=== PATIENT | male | born 1965 | race Caucasian/White ===

== ENCOUNTER → 2016-10-04 | Outpatient (CLI) | payer MEDICARE, OTHER ==
--- NOTE | 2016-10-04 12:46 | EKG REPORT ---
SEVERITY:- NORMAL ECG - SINUS RHYTHM : Confirmed by: Elza Acosta MD 04-Oct-2016 12:44:52
--- NOTE | 2016-10-04 15:06 | RADIOLOGY REPORT (SQ) ---
EXAM DESCRIPTION: CHEST PA/LATERAL COMPLETED DATE/TIME: 10/04/2016 1:14 pm REASON FOR STUDY: End stage renal disease COMPARISON: None. EXAM PARAMETERS: NUMBER OF VIEWS: two views TECHNIQUE: Digital Frontal and Lateral radiographic views of the chest acquired. RADIATION DOSE: NA LIMITATIONS: none FINDINGS: LUNGS AND PLEURA: Bandlike atelectasis or scarring at the left lung base. Calcified granu red in the lingular apex. No fluffy alveolar infiltrates worrisome for edema or pneumonia. No pleu ral effusions. No pneumothorax. MEDIASTINUM AND HILAR STRUCTURES: No masses or contour abnormalities. HEART AND VASCULAR STRUCTURES: Heart normal size. No evidence for failure. BONES: No acute findings. HARDWARE: None in the chest. OTHER: No other significant finding. IMPRESSION: No acute infiltrates. TECHNICAL DOCUMENTATION: JOB ID: [id number] [email or web address]- All Rights Reserved
== END ==
LOC: OD 11:16
PROVIDERS: ATTEND Internal Medicine Nephrology
DX: N18.6 End stage renal disease (principal)
CPT/HCPCS: 71020; 93005; 93010

== ENCOUNTER → 2016-10-04 | Outpatient (CLI) | payer MEDICARE, OTHER ==
[2016-10-04 12:17] LABS: ABSOLUTE BASOPHILS # (AUTO) 0.1 10^3/uL (0.0-0.2); ABSOLUTE EOSINOPHILS # (AUTO) 0.4 10^3/uL (0.0-0.6); ABSOLUTE MONOCYTES (AUTO) 0.6 10^3/uL (0.1-1.4); ABSOLUTE NEUT (AUTO) 4.6 10^3/uL (1.7-8.2); BASOPHILS % (AUTO) 1.5 % (0-2); EOSINOPHILS % (AUTO) 6.2 % (0-6); HEMATOCRIT 51.8 % (37.9-51.0); HEMOGLOBIN 16.2 g/dL (13.5-17.0); HGB HCT DIFFERENCE -3.2; LYMPHOCYTES % (AUTO) 15.1 % (13-45); MEAN CORPUSCULAR HEMOGLOBIN 28.5 pg (27.0-33.4); MEAN CORPUSCULAR HGB CONC 31.2 g/dL (32.0-36.0); MEAN CORPUSCULAR VOLUME 91 fl (80-97); MONOCYTES % (AUTO) 9.3 % (3-13); RED BLOOD COUNT 5.68 10^6/uL (4.35-5.55); RED CELL DISTRIBUTION WIDTH 15.5 % (11.5-14.0); SEGMENTED NEUTROPHILS % (AUTO) 67.9 % (42-78); WHITE BLOOD COUNT 6.8 10^3/uL (4.0-10.5)
[2016-10-04 12:47] LABS: ALANINE AMINOTRANSFERASE 29 U/L (21-72); ALBUMIN 3.5 g/dL (3.5-5.0); ALKALINE PHOSPHATASE 128 U/L (38-126); ANION GAP 15 (5-19); ASPARTATE AMINO TRANSFERASE 23 U/L (17-59); BILIRUBIN,DIRECT 0.5 mg/dL (0.0-0.4); BILIRUBIN,TOTAL 0.5 mg/dL (0.2-1.3); BLOOD UREA NITROGEN 59 mg/dL (7-20); C-REACTIVE PROTEIN 21.9 mg/L (<10.0); CALCIUM 9.4 mg/dL (8.4-10.2); CARBON DIOXIDE 31 mmol/L (22-30); CHLORIDE 93 mmol/L (98-107); CREATININE RESULT 11.49 mg/dL (0.52-1.25); GLUCOSE 121 mg/dL (75-110); POTASSIUM 5.5 mmol/L (3.6-5.0); SODIUM 138.7 mmol/L (137-145); TOTAL PROTEIN 6.3 g/dL (6.3-8.2)
[2016-10-04 12:53] LABS: ERYTHROCYTE SEDIMENTATION RATE 26 mm/hr (0-20)
--- NOTE | 2016-10-04 14:05 | RADIOLOGY REPORT (SQ) ---
EXAM DESCRIPTION: FOOT LEFT COMPLETE COMPLETED DATE/TIME: 10/04/2016 1:14 pm REASON FOR STUDY: NON-PRS CHR ULCER OF LEFT HEEL AND MIDFOOT W FAT LAYER EXPOS L97.422 NON-PRS CHR ULCER OF LEFT HEEL AND MIDFOOT W FAT LAY E11.621 TYPE 2 DIABETES MELLITUS WITH FOOT ULCER COMPARISON: None. NUMBER OF VIEWS: Three views. TECHNIQUE: AP, lateral and oblique radiographic images acquired of the left foot. LIMITATIONS: None. FINDINGS: MINERALIZATION: Overall normal bone mineralization. No bony resorption or periosteal new bone along the calcaneus worrisome for osteomyelitis. BONES: Incidental finding of a transverse subacute fracture, proximal metaphysis pinky toe proximal p halanx. This may be acute or subacute. JOINTS: Unremarkable SOFT TISSUES: 2.5 cm heel soft tissue ulcer best shown on lateral view No soft tissue swelling. No foreign body. OTHER: Atherosclerotic arterial vascular calcifications IMPRESSION: 2.5 cm heel soft tissue ulcer No underlying calcaneal demineralization or periosteal new bone worrisome for osteomyelitis Incidental finding of an acute or subacute fracture of the base left pinky toe proximal phalanx TECHNICAL DOCUMENTATION: JOB ID: [id number] [employer]- All Rights Reserved
== END ==
LOC: WC 10:59
PROVIDERS: ATTEND Nurse Practitioner Family
DX: E11.621 Type 2 diabetes mellitus with foot ulcer (principal); L97.422 Non-pressure chronic ulcer of left heel and midfoot with fat layer exposed
CPT/HCPCS: 36415; 80053; 83036; 85025; 85652; 86140

== ENCOUNTER → 2016-11-01 | Outpatient (CLI) | payer MEDICARE ==
[2016-11-01 12:08] LABS: ABSOLUTE BASOPHILS # (AUTO) 0.1 10^3/uL (0.0-0.2); ABSOLUTE EOSINOPHILS # (AUTO) 0.3 10^3/uL (0.0-0.6); ABSOLUTE LYMPHOCYTES (AUTO) 0.8 10^3/uL (0.5-4.7); ABSOLUTE MONOCYTES (AUTO) 0.4 10^3/uL (0.1-1.4); BASOPHILS % (AUTO) 0.9 % (0-2); EOSINOPHILS % (AUTO) 4.8 % (0-6); HEMATOCRIT 47.8 % (37.9-51.0); HEMOGLOBIN 15.5 g/dL (13.5-17.0); HGB HCT DIFFERENCE -1.3; LYMPHOCYTES % (AUTO) 11.7 % (13-45); MEAN CORPUSCULAR HEMOGLOBIN 29.2 pg (27.0-33.4); MEAN CORPUSCULAR HGB CONC 32.5 g/dL (32.0-36.0); MEAN CORPUSCULAR VOLUME 90 fl (80-97); MONOCYTES % (AUTO) 6.1 % (3-13); RED BLOOD COUNT 5.32 10^6/uL (4.35-5.55); RED CELL DISTRIBUTION WIDTH 15.6 % (11.5-14.0); SEGMENTED NEUTROPHILS % (AUTO) 76.5 % (42-78); WHITE BLOOD COUNT 6.5 10^3/uL (4.0-10.5)
--- NOTE | 2016-11-01 12:23 | RADIOLOGY REPORT (SQ) ---
EXAM DESCRIPTION: FOOT LEFT COMPLETE COMPLETED DATE/TIME: 11/01/2016 11:28 am REASON FOR STUDY: NON-PRS CHRONIC ULCER OTH PRT LEFT FOOT W FAT LAYER EXPOSED E11.621 TYPE 2 DIABET ES MELLITUS WITH FOOT ULCER L97.522 NON-PRS CHRONIC ULCER OTH PRT LEFT FOOT W FAT LAYER COMPARISON: 10/04/2016 NUMBER OF VIEWS: Three views. TECHNIQUE: AP, lateral and oblique radiographic images acquired of the left foot. LIMITATIONS: None. FINDINGS: MINERALIZATION: Normal. BONES: Healing fracture of the proximal phalanx of the 5th digit. No evidence for osteomyelitis. JOINTS: No effusions. SOFT TISSUES: Soft tissue defect distal seconds toe. Radiodensity, question gauze. Soft tissue defect plantar surface along the calcaneus. Adjacent radiodensity question treatment gau zel. OTHER: No other significant finding. IMPRESSION: No evidence for osteomyelitis. 2 soft tissue defects as described. Healing fracture proximal phalanx 5th digit. TECHNICAL DOCUMENTATION: JOB ID: [id number] [employer]- All Rights Reserved
[2016-11-01 12:52] LABS: ERYTHROCYTE SEDIMENTATION RATE 22 mm/hr (0-20)
== END ==
LOC: WC 10:59
PROVIDERS: ATTEND Nurse Practitioner Family
DX: E11.621 Type 2 diabetes mellitus with foot ulcer (principal); L97.522 Non-pressure chronic ulcer of other part of left foot with fat layer exposed
CPT/HCPCS: 36415; 85025; 85652; 86140

== ENCOUNTER → 2016-11-14 | Outpatient (CLI) | payer MEDICARE, OTHER ==
[2016-11-14 13:58] LABS: ANION GAP 18 (5-19); BLOOD UREA NITROGEN 54 mg/dL (7-20); CALCIUM 9.5 mg/dL (8.4-10.2); CARBON DIOXIDE 28 mmol/L (22-30); CHLORIDE 92 mmol/L (98-107); CREATININE RESULT 12.43 mg/dL (0.52-1.25); GLUCOSE 207 mg/dL (75-110); POTASSIUM 4.3 mmol/L (3.6-5.0); SODIUM 137.5 mmol/L (137-145)
== END ==
LOC: OD 13:12
PROVIDERS: ATTEND Physician Assistant Surgical
DX: Z01.810 Encounter for preprocedural cardiovascular examination (principal); I70.90 Unspecified atherosclerosis; I10 Essential (primary) hypertension
CPT/HCPCS: 36415; 80048

== ENCOUNTER → 2016-12-15 | Outpatient (CLI) | payer MEDICARE, OTHER ==
--- NOTE | 2016-12-15 15:04 | RADIOLOGY REPORT (SQ) ---
EXAM DESCRIPTION: FOOT LEFT COMPLETE COMPLETED DATE/TIME: 12/15/2016 2:30 pm REASON FOR STUDY: NON-PRESSURE ULCER LEFT HEEL E11.621 TYPE 2 DIABETES MELLITUS WITH FOOT ULCER L97 .422 NON-PRS CHR ULCER OF LEFT HEEL AND MIDFOOT W FAT LAY COMPARISON: 11/01/2016 NUMBER OF VIEWS: Three views. TECHNIQUE: AP, lateral and oblique radiographic images acquired of the left foot. LIMITATIONS: None. FINDINGS: MINERALIZATION: Normal. BONES: No evidence of osteomyelitis. There is a healing fracture of 5th proximal phalanx. On the la teral view there appears to be a defect in the neck of 1 of the distal phalanges, possibly the 2nd. JOINTS: No effusions. SOFT TISSUES: Soft tissue defect seen on the inferior dorsal aspect of the left heel OTHER: No other significant finding. IMPRESSION: 1. Fracture of the 5th proximal phalanx. 2. Possible fracture of the neck of the 2nd distal phalanx. 3. Soft tissue defect in the heel with no evidence of osteomyelitis. TECHNICAL DOCUMENTATION: JOB ID: [id number] [employer]- All Rights Reserved
[2016-12-15 15:28] LABS: ABSOLUTE BASOPHILS # (AUTO) 0.1 10^3/uL (0.0-0.2); ABSOLUTE EOSINOPHILS # (AUTO) 0.4 10^3/uL (0.0-0.6); ABSOLUTE LYMPHOCYTES (AUTO) 1.3 10^3/uL (0.5-4.7); ABSOLUTE MONOCYTES (AUTO) 0.7 10^3/uL (0.1-1.4); ABSOLUTE NEUT (AUTO) 5.6 10^3/uL (1.7-8.2); BASOPHILS % (AUTO) 1.2 % (0-2); EOSINOPHILS % (AUTO) 4.9 % (0-6); HEMATOCRIT 45.2 % (37.9-51.0); HEMOGLOBIN 14.9 g/dL (13.5-17.0); HGB HCT DIFFERENCE -0.5; LYMPHOCYTES % (AUTO) 16.1 % (13-45); MEAN CORPUSCULAR HEMOGLOBIN 31.3 pg (27.0-33.4); MEAN CORPUSCULAR VOLUME 95 fl (80-97); MONOCYTES % (AUTO) 8.4 % (3-13); RED BLOOD COUNT 4.77 10^6/uL (4.35-5.55); RED CELL DISTRIBUTION WIDTH 17.7 % (11.5-14.0); SEGMENTED NEUTROPHILS % (AUTO) 69.4 % (42-78)
[2016-12-15 15:48] LABS: ALANINE AMINOTRANSFERASE 31 U/L (21-72); ALBUMIN 3.9 g/dL (3.5-5.0); ALKALINE PHOSPHATASE 170 U/L (38-126); ANION GAP 17 (5-19); ASPARTATE AMINO TRANSFERASE 22 U/L (17-59); BILIRUBIN,DIRECT 0.5 mg/dL (0.0-0.4); BILIRUBIN,TOTAL 0.5 mg/dL (0.2-1.3); BLOOD UREA NITROGEN 62 mg/dL (7-20); CALCIUM 9.7 mg/dL (8.4-10.2); CARBON DIOXIDE 26 mmol/L (22-30); CHLORIDE 95 mmol/L (98-107); CREATININE RESULT 11.97 mg/dL (0.52-1.25); GLUCOSE 162 mg/dL (75-110); POTASSIUM 5.3 mmol/L (3.6-5.0); SODIUM 138.2 mmol/L (137-145); TOTAL PROTEIN 6.4 g/dL (6.3-8.2)
[2016-12-15 16:11] LABS: C-REACTIVE PROTEIN 10.8 mg/L (<10.0); ERYTHROCYTE SEDIMENTATION RATE 34 mm/hr (0-20)
== END ==
LOC: WC 14:03
PROVIDERS: ATTEND Preventive Medicine Undersea and Hyperbaric Medicine
DX: E11.621 Type 2 diabetes mellitus with foot ulcer (principal); L97.422 Non-pressure chronic ulcer of left heel and midfoot with fat layer exposed; S92.512A Displaced fracture of proximal phalanx of left lesser toe(s), initial encounter for closed fracture; X58.XXXA Exposure to other specified factors, initial encounter
CPT/HCPCS: 36415; 80053; 83036; 85025; 85652; 86140

== ENCOUNTER → 2017-01-11 | Outpatient (CLI) | payer MEDICARE, OTHER ==
--- NOTE | 2017-01-11 15:55 | RADIOLOGY REPORT (SQ) ---
EXAM DESCRIPTION: CT LT LOWER EXTREMITY WITHOUT COMPLETED DATE/TIME: 01/11/2017 3:07 pm REASON FOR STUDY: NON PRESSURE ULCER L HEEL L97.422 NON-PRS CHR ULCER OF LEFT HEEL AND MIDFOOT W FA T LAY COMPARISON: Left foot films 12/15/2016, 11/01/2016, 10/04/2016 Two-view chest 10/04/2016 TECHNIQUE: CT scan of the left foot performed without intravenous or oral contrast. Images reviewed with soft tissue and bone windows. Reconstructed coronal and sagittal MPR images reviewed. All irineo ges stored on PACS. All CT scanners at this facility use dose modulation, iterative reconstruction, and/or weight based d osing when appropriate to reduce radiation dose to as low as reasonably achievable (ALARA). [facility]: Dose Right [facility]: CareDose [facility]: Dose Right [facility]: Teradose 4D [facility]: [employer] RADIATION DOSE: Up-to-date CT equipment and radiation dose reduction techniques were employed. CTDIv ol: 4.1 mGy. DLP: 101 mGy-cm. mGy. LIMITATIONS: None. FINDINGS: No fracture. Grossly normal bone density. Patient has a soft tissue ulcer along the lateral aspect of the left heel soft tissues. Ulcer measur es about 1.6 cm in greatest diameter. There is a rind of subcutaneous fat and soft tissue between th e ulcer and the bony cortical surface. No bony erosions or resort cline worrisome for osteomyelitis. There is some periosteal new bone growth along a plantar calcaneal spur, nonspecific. No fractures. No significant arthritis in the hindfoot. No gross soft tissue abscess. Achilles tendon intact. Healing fracture 5th toe proximal phalanx base IMPRESSION: 1.6 cm soft tissue ulcer lateral aspect dorsal heel, without underlying calcaneal bony i nvolvement. Healing fracture 5th toe proximal phalanx, base. TECHNICAL DOCUMENTATION: JOB ID: [id number] Quality ID # [id number]: Final reports with documentation of one or more dose reduction techniques (e.g., Au tomated exposure control, adjustment of the mA and/or kV according to patient size, use of iterative reconstruction technique) 2010 [employer]- All Rights Reserved
== END ==
LOC: RAD 14:37
PROVIDERS: ATTEND Nurse Practitioner Family
DX: L97.422 Non-pressure chronic ulcer of left heel and midfoot with fat layer exposed (principal); S92.512D Displaced fracture of proximal phalanx of left lesser toe(s), subsequent encounter for fracture with routine healing

== ENCOUNTER → 2017-04-06 | Outpatient (CLI) | payer MEDICARE, MEDICAID ==
--- NOTE | 2017-04-06 16:01 | RADIOLOGY REPORT (SQ) ---
EXAM DESCRIPTION: FOOT LEFT COMPLETE COMPLETED DATE/TIME: 04/06/2017 2:40 pm REASON FOR STUDY: NON-PRS CHR ULCER OF LEFT HEEL AND MIDFOOT W FAT LAYER EXPOS L97.422 NON-PRS CHR ULCER OF LEFT HEEL AND MIDFOOT W FAT LAY COMPARISON: None. NUMBER OF VIEWS: Three views. TECHNIQUE: AP, lateral and oblique radiographic images acquired of the left foot. LIMITATIONS: None. FINDINGS: MINERALIZATION: Normal. BONES: There is been amputation of the 2nd digit from the diaphysis of the 2nd proximal phalanx. Sma ll plantar calcaneal spur. No evidence of osteomyelitis. JOINTS: No effusions. SOFT TISSUES: No soft tissue swelling. No foreign body. OTHER: No other significant finding. IMPRESSION: Calcaneal spur. No evidence of osteomyelitis. TECHNICAL DOCUMENTATION: JOB ID: [id number] [email or web address]- All Rights Reserved
== END ==
LOC: OD 14:20
PROVIDERS: ATTEND Preventive Medicine Undersea and Hyperbaric Medicine
DX: L97.422 Non-pressure chronic ulcer of left heel and midfoot with fat layer exposed (principal); M77.32 Calcaneal spur, left foot

== ENCOUNTER → 2017-04-13 | Outpatient (CLI) | payer MEDICARE, MEDICAID ==
--- NOTE | 2017-04-14 08:45 | XCELERA REPORT ---
[address] [address] Lower Extremity Arterial Evaluation Name: NETTIE VALVERDE Age: 51 yrs Gender: Male : 1965 Patient Status: Outpatient Patient Location: Study Date: 04/13/2017 12:47 PM Procedure: A color flow and duplex scan of the lower extremity arteries was performed bilaterally with velocity and waveform anaylsis. 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 Normal velocity and triphasic waveforms noted in the Common Femoral artery. Biphasic in the Popliteal. 0-19% stenosis at the Femoral artery. Left Side Arterial Evaluation Normal velocity and triphasic waveforms noted from the Common Femoral artery to the Popliteal artery. Biphasic in the Deep Femoral artery. Monophasic in the infrageniculate vessels. Occlusion with monophasic reconstitution in the Posterior Tibial artery . 0-19% stenosis at the Deep Femoral artery. Sequential disease, as noted. Ankle Brachial index is 0.6 PT, non compressible AT. Interpretation Summary Moderate hemodynamically significant lesions in the right lower extremity only, on duplex imaging, at rest. Severe hemodynamically significant lesions in the left lower extremity only, on duplex imaging, at rest. : REINALDO BARRERA > Taye Carty
== END ==
LOC: SP 12:46
PROVIDERS: ATTEND Preventive Medicine Undersea and Hyperbaric Medicine
DX: L97.422 Non-pressure chronic ulcer of left heel and midfoot with fat layer exposed (principal)
CPT/HCPCS: 93922; 93925

== ENCOUNTER → 2017-05-15 | Outpatient (CLI) | payer MEDICAID, MEDICARE ==
--- NOTE | 2017-05-16 08:47 | RADIOLOGY REPORT (SQ) ---
EXAM DESCRIPTION: MRI LT LOWER EXTREMITY WITHOUT COMPLETED DATE/TIME: 05/15/2017 6:07 pm REASON FOR STUDY: L97.422 NON-PRS CHR ULCER OF LEFT HEEL AND MIDFOOT W FAT LAYER EXPOS L97.422 NON- PRS CHR ULCER OF LEFT HEEL AND MIDFOOT W FAT LAY E11.621 TYPE 2 DIABETES MELLITUS WITH FOOT ULCER COMPARISON: None. TECHNIQUE: Multiplanar imaging of the left hindfoot to include fat and fluid sensitive sequences. LIMITATIONS: None. FINDINGS: BONE MARROW: No marrow signal alteration. Specifically no marrow replacement or marrow ed venu. No evidence for osteomyelitis. No cortical break through. SOFT TISSUES: Plantar ulcer over the posterior calcaneus. No abscess. OTHER: No other significant finding. IMPRESSION: NO EVIDENCE FOR OSTEOMYELITIS. TECHNICAL DOCUMENTATION: JOB ID: [id number] [employer]- All Rights Reserved
== END ==
LOC: RAD 16:30
PROVIDERS: ATTEND Preventive Medicine Undersea and Hyperbaric Medicine
DX: E11.621 Type 2 diabetes mellitus with foot ulcer (principal); L97.422 Non-pressure chronic ulcer of left heel and midfoot with fat layer exposed

== ENCOUNTER → 2017-06-05 | Outpatient (CLI) | payer MEDICARE, OTHER ==
--- NOTE | 2017-06-06 09:47 | RADIOLOGY REPORT (SQ) ---
EXAM DESCRIPTION: MRI RT UPPER EXTREMITY WITHOUT COMPLETED DATE/TIME: 06/05/2017 12:59 pm REASON FOR STUDY: PAIN IN R FINGERS/HAND M79.644 PAIN IN RIGHT FINGER(S) M79.89 OTHER SPECIFIED SO FT TISSUE DISORDERS Z87.39 PERSONAL HISTORY OF DISEASES OF THE MS SYS AND CONN T COMPARISON: None. TECHNIQUE: Multiplanar imaging of the right 4th finger to include fat and fluid sensitive sequences. . LIMITATIONS: None. FINDINGS: BONE MARROW: No marrow signal alteration. Specifically no marrow replacement or marrow ed venu. No evidence for osteomyelitis. No cortical break through. SOFT TISSUES: Generalized tenosynovitis of the flexor mechanism of the 4th digit with fluid in the te ndon sheath. No focal abscess. OTHER: MCP amputation of the 3rd digit. IMPRESSION: No osteomyelitis or soft tissue abscess. Generalized tenosynovitis of the flexor mechanism of the 4th digit. TECHNICAL DOCUMENTATION: JOB ID: [id number] [employer]- All Rights Reserved
== END ==
LOC: RAD 11:56
PROVIDERS: ATTEND Physician Assistant Surgical
DX: L08.9 Local infection of the skin and subcutaneous tissue, unspecified (principal)

== ENCOUNTER → 2017-07-22 | Outpatient (CLI) | payer MEDICARE, MEDICAID ==
--- NOTE | 2017-07-22 15:23 | RADIOLOGY REPORT (SQ) ---
EXAM DESCRIPTION: MRI RT UPPER EXTREMITY WITHOUT COMPLETED DATE/TIME: 07/22/2017 9:54 am REASON FOR STUDY: PAIN IN RIGHT FINGERS COMPARISON: 06/05/2017 TECHNIQUE: T1, T2 fat sat, and gradient echo weighted sequences with attention to the 4th finger. I mages saved to PACs. LIMITATIONS: Motion artifact. FINDINGS: There is a defect in the flexor tendon of the 4th digit. The thickened stump is at the le jenifer of the distal aspect of the proximal phalanx. There is fluid in the more proximal tendon sheath extending to the edge of the [id number] at the base of the metacarpal. Regional marrow signal is normal. Prior amputation of 3rd phalanx. IMPRESSION: Rupture of the flexor tendon of the 4th phalanx. TECHNICAL DOCUMENTATION: JOB ID: [id number] [employer]- All Rights Reserved Reading location - IP/workstation name: [email or web address]
== END ==
LOC: RAD 08:55
PROVIDERS: ATTEND Orthopaedic Surgery
DX: M79.644 Pain in right finger(s) (principal); S56.111A Strain of flexor muscle, fascia and tendon of right index finger at forearm level, initial encounter; X58.XXXA Exposure to other specified factors, initial encounter

== ENCOUNTER 2017-08-08 05:23 | Day surgery (SDC) | payer MEDICARE, MEDICAID ==
[2017-08-04 12:50] LABS: ABSOLUTE BASOPHILS # (AUTO) 0.1 10^3/uL (0.0-0.2); ABSOLUTE EOSINOPHILS # (AUTO) 0.3 10^3/uL (0.0-0.6); ABSOLUTE LYMPHOCYTES (AUTO) 0.9 10^3/uL (0.5-4.7); ABSOLUTE MONOCYTES (AUTO) 0.6 10^3/uL (0.1-1.4); EOSINOPHILS % (AUTO) 3.7 % (0-6); HEMATOCRIT 44.3 % (37.9-51.0); HEMOGLOBIN 14.8 g/dL (13.5-17.0); LYMPHOCYTES % (AUTO) 10.4 % (13-45); MEAN CORPUSCULAR HEMOGLOBIN 31.4 pg (27.0-33.4); MEAN CORPUSCULAR HGB CONC 33.4 g/dL (32.0-36.0); MEAN CORPUSCULAR VOLUME 94 fl (80-97); PLATELET COUNT 253 10^3/uL (150-450); RED BLOOD COUNT 4.71 10^6/uL (4.35-5.55); SEGMENTED NEUTROPHILS % (AUTO) 77.9 % (42-78); TOTAL CELLS COUNTED % (AUTO) 100 %
[2017-08-04 13:13] LABS: BLOOD UREA NITROGEN 108 mg/dL (7-20); CALCIUM 9.6 mg/dL (8.4-10.2); GLUCOSE 46 mg/dL (75-110); POTASSIUM 4.5 mmol/L (3.6-5.0)
[2017-08-04 13:18] LABS: CARBON DIOXIDE 25 mmol/L (22-30); CHLORIDE 96 mmol/L (98-107); SODIUM 144.1 mmol/L (137-145)
[2017-08-04 13:19] LABS: ANION GAP 23 (5-19)
--- NOTE | 2017-08-04 21:27 | EKG REPORT ---
SEVERITY:- NORMAL ECG - SINUS RHYTHM : Confirmed by: Magi Pruett 04-Aug-2017 21:26:18
[~2017-08-08 05:23] MED LIST: BUPIVACAINE HCL 0.5 % INJ/PF 30 ML SDV ONE; CEFAZOLIN SODIUM 2 GM in NORMAL SALINE 100 ML IV PRN; LIDOCAINE 0.5% INJ-PF (5 MG/ML) 50 ML SDV SUBCUT PRN; NORMAL SALINE 1000 ML (RENAL PATIENTS) IV PRN
[2017-08-08] MEDS ORDERED: FENTANYL CITRATE INJ/PF 100 MCG/2 ML AMPUL ONE (06:22)
[2017-08-08] MEDS ORDERED: MIDAZOLAM 2 MG/2 ML INJ ONE (06:22)
[2017-08-08] MEDS ORDERED: LIDOCAINE 2% INJ-PF (20 MG/ML) 10 ML AMPUL ONE (06:22)
[2017-08-08 06:23] LABS: INTERNATIONAL RATION (INR) 1.06; PROTHROMBIN TIME 14.3 SEC (11.4-15.4)
[2017-08-08] MEDS ORDERED: PROPOFOL INJ 200 MG/20 ML VIAL IV ONE (06:23)
[2017-08-08] MEDS ORDERED: ONDANSETRON HCL INJ/PF 4 MG/2 ML SDV ONE (06:23)
[2017-08-08] MEDS ORDERED: DEXAMETHASONE SOD PHOSPHATE INJ 4 MG/1 ML VIAL ONE (06:23)
[2017-08-08] MEDS ORDERED: ACETAMINOPHEN 0 ML IV ONE (06:23)
[2017-08-08 06:24] LABS: PARTIAL THROMBOPLASTIN TIME 34.1 SEC (23.5-35.8)
[2017-08-08 06:48] LABS: POTASSIUM 3.5 mmol/L (3.6-5.0)
--- NOTE | 2017-08-08 07:01 | RADIOLOGY REPORT (SQ) ---
EXAM DESCRIPTION: CHEST SINGLE VIEW CLINICAL HISTORY: 52 years Male, preop COMPARISON: 6.20.17 NUMBER OF VIEWS/TECHNIQUE: 1/AP LIMITATIONS: None. FINDINGS: Normal lung volume, clear parenchyma, normal cardiac silhouette, and intact bony thorax. IMPRESSION: No acute cardiopulmonary findings.
[2017-08-08] MEDS ORDERED: KETAMINE HCL INJ 500 MG/10 ML VIAL ONE (07:27)
[2017-08-08] MEDS ORDERED: ROPIVACAINE HCL 0.5% INJ/PF (5 MG/1 ML) 30 ML SDV ONE (07:33)
[2017-08-08] MEDS ORDERED: LIDOCAINE 1% INJ-PF (10 MG/ML) 30 ML SDV ONE (07:34)
[2017-08-08] MEDS ORDERED: LIDOCAINE 2%/EPINEPHRINE INJ 20 ML VIAL ONE (07:34)
[2017-08-08] MEDS ORDERED: DIPHENHYDRAMINE HCL 50 MG/ML VIAL IV PRN (08:06)
[2017-08-08] MEDS ORDERED: MEPERIDINE HCL/PF INJ 25 MG/1 ML DISP.SYRIN IV PRN (08:06)
[2017-08-08] MEDS ORDERED: FENTANYL CITRATE INJ/PF 100 MCG/2 ML AMPUL IV PRN ×2 (08:06)
[2017-08-08] MEDS ORDERED: ONDANSETRON HCL INJ/PF 4 MG/2 ML SDV IV PRN ×2 (08:06→09:27)
[2017-08-08] MEDS ORDERED: RINGERS SOLUTION,LACTATED 1,000 ML IV PRN (09:27)
[2017-08-08] MEDS ORDERED: MORPHINE SULFATE 10 MG/ML INJ IV PRN (09:27)
[2017-08-08] MEDS ORDERED: OXYCODONE-ACETAMINOPHEN 5-325 MG TABLET PO PRN (09:27)
--- NOTE | 2017-08-08 09:34 | Discharge Summary ---
Discharge Summary (SDC) - Discharge Final Diagnosis: rupture of flexor tendon 4th finger, right hand Date of Surgery: 08/08/17 Discharge Date: 08/08/17 Condition: Good Treatment or Instructions: Schedule Follow Up w/ Dr. Hema Otero @ [facility] for [facility] to be seen in 10-14 days or as scheduled [place]: [place]: [place]: Ice and elevate Keep splint clean/dry/intact. If your fingers become numb please unwrap the Delvis wrap but leave the splint in place, if the sensation does not return within 30 minutes please return to the emergency department. Please use ibuprofen (Motrin or Advil) 600-800 mg every 8 hours as needed for pain or fever DO NOT TAKE w/ TORADOL may use once TORADOL complete. You may also use acetaminophen (Tylenol) 1000 mg every 4-6 hours as needed for pain or fever. Please be aware that many medications contain acetaminophen, do not exceed a total of 1000 mg of acetaminophen every 6 hours. If ibuprofen and acetaminophen are not sufficient for your pain you may take the Percocet/Roberts. Please be aware that the Percocet/Roberts does contain Tylenol. Stool softener of choice when on pain medication. Prescriptions: Oxycodone HCl/Acetaminophen [Oxycodone-Acetaminophen 5-325] 1 each PO Q6 #35 tablet Referrals: XIMENA SUERO MD [Primary Care Provider] - Discharge Diet: As Tolerated, Regular Respiratory Treatments at Home: Deep Breathing/Coughing Discharge Activity: No Lifting Over 10 Pounds, No Lifting/Push/Pulling, No tub bath Report the Following to Your Physician Immediately: Shortness of Breath, Fever over 101 Degrees, Unusual Bleeding, Redness, Warmth, Drainage-Yellow
--- NOTE | 2017-08-08 09:44 | Operative Report ---
Operative Report DATE OF SURGERY: 08/08/17 PREOPERATIVE DIAGNOSIS: Right ring finger spontaneous rupture flexor tendon POSTOPERATIVE DIAGNOSIS: Right ring finger spontaneous FDP/FDS rupture OPERATION: Repair right ring finger FDP zone 1 flexor tendon rupture SURGEON: SAMMY ROJAS 1ST STOPPER GRINDER: JAVIER PARKINSON ANESTHESIA: LMAC COMPLICATIONS: None ESTIMATED BLOOD LOSS: Minimal PROCEDURE: Indication for above procedure: 52-year-old male who has a long-standing history of peripheral vascular disease. He ultimately developed osteomyelitis and amputation of his middle finger. He presented to my office with spontaneous rupture of his flexor tendon. Patient MRI confirming diagnosis at that point we discussed treatment options including operative versus nonoperative intervention. Given patient's severity of his peripheral vascular disease he understands he is high risk for rerupture, infection. Despite these risks decision was made to proceed with operative intervention. Procedure In Detail: Patient was seen and evaluated in the preoperative holding area. The RIGHT upper extremity was initialized and marked. Patient received 2g of Ancef IV for bacterial prophylaxis. Patient was taken back to the operative room where transferred to the operative table. Once they were adequately anesthetized a nonsterile tourniquet was placed on the upper extremity. A surgical team debriefing was performed ensuring all instrumentation was available, the surgical procedure was discussed with possible concerns reviewed. Prior to the digital block patient did have poor peripheral perfusion and capillary refill of his index and ring fingers. A digital block was performed utilizing 10 mL 50 :50 mixture of 0.5% Marcaine and 1% lidocaine without epinephrine. The upper extremity was prepped with chlorhexidine and alcohol and draped in a sterile fashion. A timeout was done identifying correct patient, procedure and extremity everyone in attendance agree with this and verbalized no concerns. The extremity was exsanguinated the tourniquet was inflated to 180 mmHg. Printer skin incision was made centered over the A4 wan and then extended along the A2 wan. Blunt dissection was performed. Neurovascular bundles were identified. A partial sympathectomy was performed along the radial and ulnar neurovascular bundles at the level of the A4 wan. Excision was then extended proximally to locate the proximal stump of the FDP tendon. The A1 wan was released and the proximal stump was identified. Distally there is no evidence of flexor tendon remanent at the distal phalanx. Thus I determined patient's fracture is likely secondary to vascularity and at the level of zone I. Given patient's history of previous amputation and poor function with a ring finger that has no evidence of flexion I feel patient's best chance of some residual function would be repair of the flexor tendon. The FDP tendon was tagged with a PDS suture and shuttled through the A2 wan and A4 wan. A portion of the A4 wan was vented distally. I was able to get the FDP tendon to its insertion point at the distal phalanx. The distal phalanx was debrided. The FDP was secured with two 40 Fiber Loop sutures which provided good stability. The radial and ulnar limbs respectively were passed with a Tigre needle through the distal phalanx and the nailbed just distal to the lingula. While maintaining flexion by my stylist assistant of the DIP and PIP joints these were secured. Patient rest at 65 of flexion at the PIP joint and 35 flexion at the DIP joint. Tourniquet was then deflated. Any peripheral veins were controlled with bipolar cautery until the wound was dry. Patient did have normal skin turgor but there was evidence of poor capillary refill equivalent to the patient's preoperative status. The wound was then copiously irrigated with normal saline. The distal aspect of the wound was closed with chromic gut suture. Proximal wound closed with 4-0 nylon suture. Additional 10 cc of Marcaine/lidocaine were injected at the carpal tunnel for postoperative pain control. Wound was dressed with Xeroform 4 x 4's patient was placed in a dorsal blocking splint maintaining 60 of flexion of the MP joints and wrist in neutral position. Sponge counts, instrument counts, needle counts counts were correct. Patient was then awoken from anesthesia. Transferred from the operating room table to the operating room stretcher. There was no intraoperative complications patient tolerated procedure well stable to PACU. Postoperative plan: Patient will follow-up the office in 2 weeks for suture removal. We will set him up for occupational therapy conservative zone 1 flexor tendon protocol.
[2017-08-08] MEDS ORDERED: DEXTROSE 50%-WATER 25 GM/50 ML DISP.SYRIN IV ONE (11:17)
[2017-08-08 13:04] VITALS: BP 102/64
== END 2017-08-08 12:55 | disposition home or self-care (01) ==
LOC: OROUT 05:23
PROVIDERS: ATTEND Orthopaedic Surgery
DX: M66.341 Spontaneous rupture of flexor tendons, right hand (principal); I12.0 Hypertensive chronic kidney disease with stage 5 chronic kidney disease or end stage renal disease; E11.22 Type 2 diabetes mellitus with diabetic chronic kidney disease; N18.6 End stage renal disease; Z99.2 Dependence on renal dialysis; E78.5 Hyperlipidemia, unspecified; M19.90 Unspecified osteoarthritis, unspecified site; R01.1 Cardiac murmur, unspecified; F32.9 Major depressive disorder, single episode, unspecified; Z87.891 Personal history of nicotine dependence; Z79.4 Long term (current) use of insulin; Z79.899 Other long term (current) drug therapy; Z85.828 Personal history of other malignant neoplasm of skin
CPT/HCPCS: 93005; 36415 ×2; 82962; 82947; 84132; 85025; 85610; 85730; 80048; 83036; 71045; 93010; 26356; J2795; J2250; J3490 ×6; J0690; J2405; J2704; 1810; J0131; J1100; J3010

== ENCOUNTER 2017-09-05 08:38 | Day surgery (SDC) | payer MEDICARE, MEDICAID ==
[~2017-09-05 08:38] MED LIST changes: +CEFAZOLIN SODIUM 2 GM in DEXTROSE 5%-WATER 100 ML IV PRN; -CEFAZOLIN SODIUM 2 GM in NORMAL SALINE 100 ML IV PRN
[2017-09-05 09:32] LABS: HEMATOCRIT 45.6 % (37.9-51.0); HEMOGLOBIN 15.3 g/dL (13.5-17.0); MEAN CORPUSCULAR HEMOGLOBIN 31.8 pg (27.0-33.4); MEAN CORPUSCULAR HGB CONC 33.6 g/dL (32.0-36.0); MEAN CORPUSCULAR VOLUME 95 fl (80-97); PLATELET COUNT 232 10^3/uL (150-450); RED BLOOD COUNT 4.81 10^6/uL (4.35-5.55); RED CELL DISTRIBUTION WIDTH 18.4 % (11.5-14.0); WHITE BLOOD COUNT 8.2 10^3/uL (4.0-10.5)
[2017-09-05 09:55] LABS: BLOOD UREA NITROGEN 94 mg/dL (7-20); CALCIUM 9.1 mg/dL (8.4-10.2); CARBON DIOXIDE 29 mmol/L (22-30); CHLORIDE 92 mmol/L (98-107); GLUCOSE 250 mg/dL (75-110); POTASSIUM 3.8 mmol/L (3.6-5.0)
[2017-09-05 10:01] LABS: ANION GAP 20 (5-19)
[2017-09-05] MEDS ORDERED: FENTANYL CITRATE INJ/PF 100 MCG/2 ML AMPUL ONE (10:01)
[2017-09-05] MEDS ORDERED: MIDAZOLAM 2 MG/2 ML INJ ONE (10:02)
[2017-09-05] MEDS ORDERED: PROPOFOL INJ 200 MG/20 ML VIAL IV ONE (10:02)
[2017-09-05 10:04] LABS: INTERNATIONAL RATION (INR) 1.08; PARTIAL THROMBOPLASTIN TIME 31.5 SEC (23.5-35.8); PROTHROMBIN TIME 14.6 SEC (11.4-15.4)
[2017-09-05] MEDS ORDERED: INSULIN REG, HUMAN 100 UNIT/ML 3 ML VIAL (PYX) ONE (10:17)
[2017-09-05] MEDS ORDERED: DIPHENHYDRAMINE HCL 50 MG/ML VIAL IV PRN (10:38)
[2017-09-05] MEDS ORDERED: PROMETHAZINE HCL INJ 25 MG/1 ML VIAL IV PRN (10:38)
[2017-09-05] MEDS ORDERED: FENTANYL CITRATE INJ/PF 100 MCG/2 ML AMPUL IV PRN ×3 (10:38)
[2017-09-05] MEDS ORDERED: MEPERIDINE HCL/PF INJ 25 MG/1 ML DISP.SYRIN IV PRN (10:38)
[2017-09-05] MEDS ORDERED: MORPHINE SULFATE 10 MG/ML INJ IV PRN (11:44)
[2017-09-05] MEDS ORDERED: OXYCODONE-ACETAMINOPHEN 5-325 MG TABLET PO PRN (11:44)
[2017-09-05] MEDS ORDERED: ONDANSETRON HCL INJ/PF 4 MG/2 ML SDV ONE (11:44)
--- NOTE | 2017-09-05 11:44 | Operative Report ---
Operative Report DATE OF SURGERY: 09/05/17 PREOPERATIVE DIAGNOSIS: Wound Dehisence. Infection Right Ring Finger. Peripheral Vascular Disease. DM POSTOPERATIVE DIAGNOSIS: Same OPERATION: MCP joint amputation with radial and ulnar digital nerve neurectomy right ring finger SURGEON: SAMMY ROJAS ANESTHESIA: GA TISSUE REMOVED OR ALTERED: Proximal phalanx bone COMPLICATIONS: None ESTIMATED BLOOD LOSS: Minimal PROCEDURE: Indication for above procedure: 52-year-old male with long-standing history of peripheral vascular disease diabetes ultimately resulting in amputation of his right middle finger, right lower extremity multiple toes of the left lower extremity. Patient sustained a spontaneous rupture of his FDP tendon of the ring finger. We discussed treatment options at that point decision was made to proceed with attempted repair however given patient's peripheral vascular disease was certainly likelihood of failure but the fact the patient only had 3 digits ultimate salvage of the ring finger function was attempted. Unfortunately patient developed wound dehiscence and dysvascularity of the volar skin tissue. At that point we discussed treatment options including possible flap reconstruction or amputation. Given patient's history of previous amputations and poor wound healing joint decision was made to proceed with amputation. Procedure In Detail: Patient was seen and evaluated in the preoperative holding area. The RIGHT upper extremity was initialized and marked. Patient received 2g of Ancef IV for bacterial prophylaxis. Patient was taken back to the operative room where transferred to the operative table and placed under general anesthesia. Once they were adequately anesthetized a nonsterile tourniquet was placed on the upper extremity. A surgical team debriefing was performed ensuring all instrumentation was available, the surgical procedure was discussed with possible concerns reviewed. The upper extremity was prepped with Betadine and draped in a sterile fashion. A timeout was done identifying correct patient, procedure and extremity everyone in attendance agree with this and verbalized no concerns. The extremity was elevated and the tourniquet was inflated to 250 mmHg. 10 cc of 0.5% Marcaine was injected for intraoperative pain control. Ellipsoid skin incision was made retaining soft tissue of the dorsal aspect of the proximal phalanx along the MCP joint of the middle finger. Sharp dissection was performed the radial and ulnar neurovascular bundles were identified and isolated. The radial and ulnar digital nerves were identified and excised 1 cm proximal to the metacarpal head. The remaining digital arteries were isolated and coagulated bipolar cautery. Any peripheral veins were coagulated as well. The MCP joint was then disarticulated and the extensor mechanism and FDP tendon severed. The remaining stump was sent to pathology along with the proximal phalanx bone to ensure no evidence of residual osteomyelitis. The wound was then copiously irrigated with normal saline and tourniquet was deflated. Any peripheral bleeding was controlled with bipolar cautery until the wound was dry. I did reinflate the tourniquet to complete closure due to the remaining bleeding from the skin edges. The skin was closed in a radial to ulnar fashion to close the space between the index and small finger digits with hopes to improve postoperative function. An additional 10 cc of 0.5% Marcaine was injected for postoperative pain control. Wound was dressed with Xeroform 4 x 4's and a soft bandage. Tourniquet was deflated once again. Patient had good peripheral perfusion. Sponge counts, instrument counts, needle counts counts were correct. Patient was then awoken from anesthesia. Transferred from the operating room table to the operating room stretcher. There was no intraoperative complications patient tolerated procedure well stable to PACU. Postoperative plan: Patient follow-up the office in 2 weeks for wound check and will begin range of motion exercises.
--- NOTE | 2017-09-05 11:46 | Discharge Summary ---
Discharge Summary (SDC) - Discharge Final Diagnosis: Right ring finger MCP joint amputation Date of Surgery: 09/05/17 Discharge Date: 09/05/17 Condition: Good Treatment or Instructions: Schedule Follow Up w/ Dr. Hema Otero @ [facility] for Surgery to be seen in 10-14 days or as scheduled [place]: [place]: [place]: Ice and elevate Keep dressing clean/dry/intact until follow-up If your fingers become numb please unwrap the Delvis wrap but leave the dressing in place, if the sensation does not return within 30 minutes please return to the emergency department. Stool softener of choice when on pain medication. Prescriptions: Oxycodone HCl/Acetaminophen [Percocet 5-325 mg Tablet] 1 - 2 tab PO ASDIR PRN # 30 tablet PRN Reason: Referrals: XIMENA SUERO MD [Primary Care Provider] - Discharge Diet: As Tolerated Respiratory Treatments at Home: Deep Breathing/Coughing Discharge Activity: No Lifting Over 10 Pounds, No Lifting/Push/Pulling Report the Following to Your Physician Immediately: Fever over 101 Degrees, Unusual Bleeding, Redness, Swelling, Warmth, Increased Soreness
[2017-09-05 14:06] VITALS: BP 96/59
== END 2017-09-05 13:50 | disposition home or self-care (01) ==
LOC: OROUT 08:38
PROVIDERS: ATTEND Orthopaedic Surgery
DX: T81.30XA Disruption of wound, unspecified, initial encounter (principal); Y83.9 Surgical procedure, unspecified as the cause of abnormal reaction of the patient, or of later complication, without mention of misadventure at the time of the procedure; L08.9 Local infection of the skin and subcutaneous tissue, unspecified; I73.9 Peripheral vascular disease, unspecified; L98.499 Non-pressure chronic ulcer of skin of other sites with unspecified severity; E11.9 Type 2 diabetes mellitus without complications; E78.5 Hyperlipidemia, unspecified; Z88.8 Allergy status to other drugs, medicaments and biological substances; Z79.899 Other long term (current) drug therapy; Z79.4 Long term (current) use of insulin; Z87.891 Personal history of nicotine dependence
CPT/HCPCS: 36415; 82962; 85027; 85610; 85730; 80048; 88305 ×2; 88311; 26951; J2250; J3490; J0690; A9270; J2704; 1830; J1815; J3010

== ENCOUNTER 2017-12-08 13:58 | Day surgery (SDC) | payer MEDICARE, MEDICAID ==
[~2017-12-08 13:58] MED LIST changes: +CEFAZOLIN 2 GM/D5W RTU 2 GM/50 ML RTUPB IV PRN; -CEFAZOLIN SODIUM 2 GM in DEXTROSE 5%-WATER 100 ML IV PRN; -LIDOCAINE 0.5% INJ-PF (5 MG/ML) 50 ML SDV SUBCUT PRN; +LIDOCAINE 1% INJ-PF (10 MG/ML) 30 ML SDV ONE; -NORMAL SALINE 1000 ML (RENAL PATIENTS) IV PRN
[2017-12-08] MEDS ORDERED: FENTANYL CITRATE INJ/PF 100 MCG/2 ML AMPUL ONE (15:17)
[2017-12-08] MEDS ORDERED: MIDAZOLAM 2 MG/2 ML INJ ONE (15:17)
[2017-12-08 15:31] LABS: HEMATOCRIT 34.5 % (37.9-51.0); HEMOGLOBIN 11.7 g/dL (13.5-17.0); MEAN CORPUSCULAR HEMOGLOBIN 31.4 pg (27.0-33.4); MEAN CORPUSCULAR HGB CONC 33.7 g/dL (32.0-36.0); MEAN CORPUSCULAR VOLUME 93 fl (80-97); PLATELET COUNT 290 10^3/uL (150-450); RED BLOOD COUNT 3.71 10^6/uL (4.35-5.55); RED CELL DISTRIBUTION WIDTH 15.3 % (11.5-14.0); WHITE BLOOD COUNT 6.1 10^3/uL (4.0-10.5)
--- NOTE | 2017-12-08 15:34 | RADIOLOGY REPORT (SQ) ---
EXAM DESCRIPTION: CHEST SINGLE VIEW COMPLETED DATE/TIME: 12/08/2017 3:23 pm REASON FOR STUDY: Pre Op COMPARISON: 08/08/2017 EXAM PARAMETERS: NUMBER OF VIEWS: One view. TECHNIQUE: Single frontal radiographic view of the chest acquired. RADIATION DOSE: NA LIMITATIONS: None. FINDINGS: LUNGS AND PLEURA: No opacities, masses or pneumothorax. No pleural effusion. MEDIASTINUM AND HILAR STRUCTURES: No masses. Contour normal. HEART AND VASCULAR STRUCTURES: Heart normal in size. Normal vasculature. BONES: No acute findings. HARDWARE: None in the chest. OTHER: Right-sided central line with tip overlying SVC. IMPRESSION: NO ACUTE RADIOGRAPHIC FINDING IN THE CHEST. TECHNICAL DOCUMENTATION: JOB ID: [id number] [employer]- All Rights Reserved Reading location - IP/workstation name: [email or web address]
[2017-12-08 15:55] LABS: BLOOD UREA NITROGEN 15 mg/dL (7-20); CALCIUM 9.3 mg/dL (8.4-10.2); GLUCOSE 50 mg/dL (75-110); POTASSIUM 4.1 mmol/L (3.6-5.0)
[2017-12-08 16:00] LABS: CARBON DIOXIDE 29 mmol/L (22-30); CHLORIDE 92 mmol/L (98-107); SODIUM 142.1 mmol/L (137-145)
[2017-12-08 16:03] LABS: ANION GAP 21 (5-19)
[2017-12-08] MEDS ORDERED: DEXTROSE 50%-WATER 25 GM/50 ML DISP.SYRIN IV ONE (16:35)
[2017-12-08] MEDS ORDERED: OXYCODONE-ACETAMINOPHEN 5-325 MG TABLET PO PRN ×2 (16:49)
[2017-12-08] MEDS ORDERED: FENTANYL CITRATE INJ/PF 100 MCG/2 ML AMPUL IV PRN ×3 (16:49)
[2017-12-08] MEDS ORDERED: MEPERIDINE HCL/PF INJ 25 MG/1 ML DISP.SYRIN IV PRN (16:49)
[2017-12-08] MEDS ORDERED: DIPHENHYDRAMINE HCL 50 MG/ML VIAL IV PRN (16:49)
[2017-12-08] MEDS ORDERED: PROMETHAZINE HCL INJ 25 MG/1 ML VIAL IV PRN ×2 (16:49)
--- NOTE | 2017-12-08 17:07 | Operative Report ---
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 We attempted conservative management with the area of necrosis continued to increase in size along with erythema. At that point patient elected to proceed with amputation given his high risk of osteomyelitis we discussed alternative treatment options after discussing these in detail decision was made to proceed with operative treatment. Procedure In Detail: Patient was seen and evaluated in the preoperative holding area. The upper extremity was initialized and marked. Patient received 2g of Ancef IV for bacterial prophylaxis. Patient was taken back to the operative room where transferred to the operative table and placed under general anesthesia. Once they were adequately anesthetized a surgical team debriefing was performed ensuring all instrumentation was available, the surgical procedure was discussed with possible concerns reviewed. Digital block was performed utilizing 10 cc of 1% lidocaine without epinephrine. The upper extremity was prepped with Betadine and draped in a sterile fashion. A timeout was done identifying correct patient, procedure and extremity everyone in attendance agree with this and verbalized no concerns. Digital tourniquet was placed. Additional skin incision was made centered over the distal aspect of the middle phalanx. Sharp dissection was performed the FDP was released with a portion excised. Extensor mechanism was good as well. Any peripheral veins were coagulated bipolar cautery. The radial and ulnar neurovascular bundles were identified. The digital arteries were coagulated with bipolar cautery. The bone was amputated proximal to the middle phalanx head just distal to the FDS insertion. A neurectomy was then performed 1 cm proximal to the amputation site The wound was then copiously irrigated with normal saline. Tourniquet was deflated. Any peripheral bleeding was coagulated with bipolar cautery. Patient had good of the distal flap. Skin was then closed with interrupted 4-0 nylon suture. Wound edges were contoured to avoid dog ear flaps. Portion of the amputation was sent to pathology and microbiology. The wound was dressed with Xeroform 4 x 4's and a soft dressing. Sponge counts , instrument counts, needle counts counts were correct. Patient was then awoken from anesthesia. Transferred from the operating room table to the operating room stretcher. There was no intraoperative complications patient tolerated procedure well stable to PACU. Postoperative plan: Patient will follow-up the office in 2 weeks for wound recheck.
[2017-12-08] MEDS ORDERED: HYDROCODONE/ACETAMINOPHEN 5-325 MG TABLET PO PRN (17:09)
--- NOTE | 2017-12-08 17:09 | Discharge Summary ---
Discharge Summary (SDC) - Discharge Final Diagnosis: Calciphylaxis with necrosis left index finger distal phalanx Date of Surgery: 12/08/17 Discharge Date: 12/08/17 Condition: Good Treatment or Instructions: Schedule Follow Up w/ Dr. Hema Otero @ [facility] for Surgery to be seen in 10-14 days or as scheduled [place]: [place]: [place]: May remove dressing on postop day #3, keep incision covered and dry. Ice and elevate May begin finger range of motion attempting to make full fist. Stool softener of choice when on pain medication. Prescriptions: Oxycodone HCl/Acetaminophen [Percocet 5-325 mg Tablet] 1 tab PO Q6 PRN #20 tab PRN Reason: Sulfamethoxazole/Trimethoprim [Bactrim Ds Tablet] 1 each PO BID #20 tablet Referrals: XIMENA SUERO MD [Primary Care Provider] - Discharge Diet: As Tolerated Respiratory Treatments at Home: Deep Breathing/Coughing Discharge Activity: No Lifting Over 10 Pounds, No Lifting/Push/Pulling Report the Following to Your Physician Immediately: Fever over 101 Degrees, Unusual Bleeding, Redness, Swelling, Warmth
[2017-12-08 19:40] VITALS: BP 98/34
--- NOTE | 2017-12-08 20:44 | EKG REPORT ---
SEVERITY:- BORDERLINE ECG - SINUS RHYTHM PROBABLE LEFT ATRIAL ABNORMALITY : Confirmed by: Magi Pruett 08-Dec-2017 17:43:17
== END 2017-12-08 19:35 | disposition home or self-care (01) ==
LOC: OROUT 13:58
PROVIDERS: ATTEND Orthopaedic Surgery
DX: E83.59 Other disorders of calcium metabolism (principal); M87.845 Other osteonecrosis, left finger(s); R01.1 Cardiac murmur, unspecified; M19.90 Unspecified osteoarthritis, unspecified site; E78.5 Hyperlipidemia, unspecified; E11.22 Type 2 diabetes mellitus with diabetic chronic kidney disease; I12.9 Hypertensive chronic kidney disease with stage 1 through stage 4 chronic kidney disease, or unspecified chronic kidney disease; F17.290 Nicotine dependence, other tobacco product, uncomplicated; N18.9 Chronic kidney disease, unspecified; Z85.828 Personal history of other malignant neoplasm of skin; Z88.8 Allergy status to other drugs, medicaments and biological substances; Z79.4 Long term (current) use of insulin; Z89.429 Acquired absence of other toe(s), unspecified side; Z99.2 Dependence on renal dialysis; Z79.899 Other long term (current) drug therapy
CPT/HCPCS: 36415; 87070; 87205; 82962; 85027; 87075; 87077; 80048; 87186; 83036; 88305 ×2; 88311; 71045; 93005; 93010; 26952; J2250; J3490 ×2; J3010; J0690; 1830